=== PATIENT | female | born 1940 | race Caucasian/White ===

== ENCOUNTER → 2017-04-23 | Outpatient (CLI) | payer OTHER ==
[~2017-04-23] MED LIST: BENICAR HCT 401 EAC1 OR; CENTRUM SILVER1 EAC1 OR; CITRACAL + D C1 EACH PO; DIOVAN HCT 3201 EAC1 PO; LIPITOR10 MG OR; PRESERVISION A1 EAC1 PO; PRESERVISION S1 EACH OR; RHINOCORT AQUA8.6 GM NS
== END ==
LOC: CAT 11:12
DX: J01.11 Acute recurrent frontal sinusitis (principal); R51 Headache

== ENCOUNTER → 2020-12-26 | Outpatient (CLI) | payer OTHER | LOC: RAD 11:44 | PROVIDERS: ATTEND Nurse Practitioner | DX: M51.37 Other intervertebral disc degeneration, lumbosacral region (principal); M47.27 Other spondylosis with radiculopathy, lumbosacral region; M48.07 Spinal stenosis, lumbosacral region; M85.88 Other specified disorders of bone density and structure, other site ==